=== PATIENT | male | born 1940 | race Caucasian/White ===

== ENCOUNTER 2016-12-18 10:05 | Day surgery (SDC) | payer MEDICARE ==
[~2016-12-18] VITALS: Ht 172.7 cm; Wt 73.9 kg
[~2016-12-18 10:05] MED LIST: 0.9% Sodium Chloride 1,000 ML IV SCH; ASPI81TA3 PO; CHOL100045 PO; LISI-571 PO; MINO100C3 PO; MULT-1018 PO; OMEG-38 PO; PRAV10TA2 PO; Sodium Chloride LOK Flush 10 mL Syringe IV PRN; VITA100C5 PO; fentaNYL-PF 50 mCg/mL 2 mL Inj IVPUSH PRN
[2016-12-18 10:46] VITALS: BP 157/83; PULSE 60; RESP 16; O2SAT 100
[2016-12-18 11:28] VITALS: BP 116/56; PULSE 68; RESP 14; O2SAT 98
[2016-12-18 11:38] VITALS: BP 102/56; PULSE 65; RESP 14; O2SAT 97
[2016-12-18 11:43] VITALS: BP 131/71; PULSE 65; RESP 14; O2SAT 100
--- NOTE | 2016-12-18 11:52 | ENDO ---
[address] [address] ENDOSCOPY PROCEDURE PATIENT: AYO GALLEGOS : 1940 MR#: [id number] ADMIT: 12/18/2016 JOB ID: [id number] DATE: 12/18/2016 PROCEDURE: Colonoscopy. INDICATION: The patient with a personal history of colon polyps. The patient's ASA classification is 2. Mallampati score is 2. MEDICATIONS: 1. Versed 4 mg. 2. Fentanyl 100 mcg. INSTRUMENT USED: PCF H 180 AL. PREPARATION QUALITY: Was good. PROCEDURE DETAILS: After informed consent was obtained, the patient was brought into the GI suite, where she was placed on oxygen via nasal cannula and monitored with continuous pulse oximeter, telemetry and blood pressure monitoring. A time-out was performed. Then, she was placed in the left lateral decubitus position and medications were administered for sedation. Digital rectal examination revealed unhiq-av-mzubdlem-sized external hemorrhoids. Prostate was palpated and appeared unremarkable. The colonoscope was then inserted into the rectum and advanced under direct visualization to the cecum, which was identified by the presence of the ileocecal valve and appendiceal orifice. Once the cecum was reached, the colonoscope was withdrawn back into the rectum as the mucosa and lumen were examined. In the rectum, retroflexion was performed. Following retroflexion, remaining air in the rectum was suctioned, and procedure was completed. FINDINGS: 1. In the transverse colon, there was an approximately 4 mm sessile polyp that was removed with a cold snare. 2. Scattered diverticula were seen throughout the ascending and descending colon. 3. Retroflexed views in the rectum revealed yqgeutug-vg-yoccu size internal hemorrhoids. IMPRESSION: 1. Transverse colon polyp. 2. Scattered diverticula in the ascending and descending colon. 3. Internal and external hemorrhoids. RECOMMENDATIONS: 1. Fiber rich diet. 2. Repeat colonoscopy in five years. COMPLICATIONS: None. ESTIMATED BLOOD LOSS: Less than 5 mL.
--- NOTE | 2016-12-19 14:06 | PATH ---
SURGICAL PATHOLOGY Attending Physician:Bijan Cuevas CASE STATUS: Signed Out PATIENT NAME: AYO GALLEGOS PID: [id number] : 1940 DATE COLLECTED:12/18/2016 21:36 SPECIMEN: Colon, Biopsy CLINICAL HISTORY: 1). TRANSVERSE COLON POLYP X1 FINAL DIAGNOSIS: 1.TRANSVERSE COLON POLYP: TUBULAR ADENOMA. ICD10 CODE D12.3 GROSS DESCRIPTION: The specimen is received in one formalin filled container labeled with the patient's name, sublabeled "transverse colon polyp x1" and consists of a 0.3 x 0.3 x 0.2 CM portion of tissue which is entirely submitted in one cassette. 12/18/2016 DAC MICRO DESCRIPTION: See diagnosis. ICD-9 CODES: CPT CODES: 1: 28748 Electronically Signed Out Sunni Covington MD [facility] Pathology [facility], [place] [address] Technical component performed at [facility], [address] [place] [address] Ave[address], [address]
== END 2016-12-18 23:59 | disposition home or self-care (01) ==
LOC: END 10:05
PROVIDERS: ATTEND Internal Medicine Gastroenterology
DX: Z12.11 Encounter for screening for malignant neoplasm of colon (principal); D12.3 Benign neoplasm of transverse colon; K57.30 Diverticulosis of large intestine without perforation or abscess without bleeding; K64.8 Other hemorrhoids; I10 Essential (primary) hypertension; Z86.010 Personal history of colon polyps; Z79.82 Long term (current) use of aspirin; Z79.899 Other long term (current) drug therapy
CPT/HCPCS: 45385; 88305; G0500; J2250; J3010; J7030